=== PATIENT | female | born 1955 | race Hispanic/Latino ===

== ENCOUNTER 2019-07-15 05:58 | Observation (INO) | payer MEDICARE, BC ==
[2019-07-09 13:20] VITALS: BP 169/85
[2019-07-09 13:30] LABS: BASOPHILS % (AUTO) 0.7 % (0.0-5.0); EOSINOPHILS % (AUTO) 1.1 % (0.0-8.0); HEMATOCRIT 44.2 % (36-48); MEAN CORPUSCULAR HEMOGLOBIN 27.9 pg (27.0-33.0); MEAN CORPUSCULAR HGB CONC 31.2 g/dL (32.0-36.0); MEAN CORPUSCULAR VOLUME 89.3 fL (79-99); MONOCYTES % (AUTO) 4.2 % (3.0-13.0); NEUTROPHILS % (AUTO) 73.1 % (40.0-77.0); PLATELET COUNT (AUTO) 307 K/uL (130-400); RED BLOOD CELL COUNT(AUTO) 4.95 MIL/uL (4.00-5.50); RED CELL DISTRIBUTION WIDTH 14.6 % (11.0-15.5); WHITE BLOOD COUNT (AUTO) 9.5 K/uL (4.8-10.8)
[2019-07-09 13:42] LABS: POTASSIUM 4.4 mmol/L (3.5-5.1)
[2019-07-15] VITALS (25 sets, daily range): BP systolic 119–156; BP diastolic 62–76
[~2019-07-15] VITALS: Ht 165.1 cm; Wt 100.0 kg
[~2019-07-15 05:58] MED LIST: ACET1TAB12 PO; KETO10 PO; PREG75 PO
[2019-07-15] MEDS: CEFAZOLIN SODIUM 1 GM VIAL IVP SCH ×5 (06:00→21:25)
[2019-07-15] MEDS ORDERED: LACTATED RINGERS 1000ML 1,000 ML IV ONE (06:10)
[2019-07-15] MEDS ORDERED: CEFAZOLIN SODIUM 1 GM VIAL ONE (06:49)
[2019-07-15] MEDS ORDERED: BUPIVACAINE/EPI/PF 0.25% 30ML VIAL IJ ONE (06:49)
[2019-07-15] MEDS ORDERED: THROMBIN-JMI 20000 UNIT KIT TP ONE (06:49)
[2019-07-15] MEDS ORDERED: DURAMORPH PF1 MG/ML 10ML AMP IV ONE (06:49)
[2019-07-15] MEDS ORDERED: LIDOCAINE PF 2% 5ML ABBOJECT ONE (07:03)
[2019-07-15] MEDS ORDERED: DEXAMETHASONE SOD PHOSPHATE 10MG/ML 1ML VIAL ONE ×2 (07:03→07:41)
[2019-07-15] MEDS ORDERED: PROPOFOL 10 MG/ML 20ML VIAL IV ONE (07:03)
[2019-07-15] MEDS ORDERED: FENTANYL CITRATE PF 50 MCG/1 ML 2ML VIAL ONE ×2 (07:04→08:03)
[2019-07-15] MEDS ORDERED: NEOSTIGMINE 5MG/5ML SYR IV ONE (07:04)
[2019-07-15] MEDS ORDERED: GLYCOPYRROLATE 1 MG/5 ML SYRINGE ONE (07:04)
[2019-07-15] MEDS ORDERED: ONDANSETRON HCL 4 MG/2 ML VIAL ONE ×2 (07:04→14:51)
[2019-07-15] MEDS ORDERED: ROCURONIUM 10MG/1ML SYR 10 MG/ML ML ONE (07:04)
[2019-07-15] MEDS ORDERED: MIDAZOLAM HCL 1 MG/ML 2ML VIAL ONE (07:04)
[2019-07-15] MEDS ORDERED: EPHEDRINE SULFATE 50 MG/ML AMPULE ONE (08:24)
[2019-07-15] MEDS ORDERED: MORPHINE SULFATE 2 MG/ML 1ML SYG IVP PRN (10:00)
[2019-07-15] MEDS ORDERED: KETOROLAC TROMETHAMINE 10 MG TABLET PO PRN (10:00)
[2019-07-15] MEDS ORDERED: SODIUM CHLORIDE 0.9% 10 ML VIAL IVP PRN (10:00)
[2019-07-15] MEDS ORDERED: ACETAMINOPHEN-CODEINE 300/30MG TAB PO SCH (10:00)
[2019-07-15] MEDS: DEXAMETHASONE SOD PHOSPHATE 4 MG/ML 1ML VIAL IVP SCH ×3 (10:00→21:23)
[2019-07-15] MEDS ORDERED: PREGABALIN 75 MG CAPSULE PO PRN (10:00)
[2019-07-15] MEDS ORDERED: PROMETHAZINE HCL 25 MG/ML 1ML AMPULE IM PRN (10:00)
[2019-07-15] MEDS ORDERED: HYDROCODONE/ACETAMINOPHEN 5/325 MG TAB PO PRN (10:00)
[2019-07-15] MEDS: LACTATED RINGERS 1000ML 1,000 ML IV SCH ×2 (11:45→21:23)
--- NOTE | 2019-07-15 14:11 | NUR ---
1243 patient signed STORY Letter I faxed STORY Letter to [id number] and placed in chart under consent tab.
[2019-07-15] MEDS ORDERED: ONDANSETRON HCL 4 MG/2 ML VIAL IVP PRN (17:00)
[2019-07-16] VITALS: BP 120/69
[2019-07-16 04:00] VITALS: BP 105/59
[2019-07-16] MEDS: DEXAMETHASONE SOD PHOSPHATE 4 MG/ML 1ML VIAL IVP SCH ×2 (05:10→09:43)
[2019-07-16] MEDS: LACTATED RINGERS 1000ML 1,000 ML IV SCH (05:12)
[2019-07-16] MEDS: CEFAZOLIN SODIUM 1 GM VIAL IVP SCH (05:12)
--- NOTE | 2019-07-16 06:10 | NUR ---
F/C F/C DISCONTINUED ORDERED DTV, INSTRUCT PATIENT TO CALL NURSE WHEN URGE TO VOID, PATIENT VERBALIZES UNDERSTANDING VIA TEACH BACK, CALL [facility] AT REACH
[2019-07-16 07:30] VITALS: BP 124/67
--- NOTE | 2019-07-16 10:59 | NUR ---
CM NOTE SCHEDULED PORCEDURE, ONE DAY STAY , REVIEWED CHART INC WICHO/MD VAZ, NO TRIGGERS OR CONCERNS, DETAILED CM ASSESSMENT DEFERRED Addendum: 07/16/19 at 1101 by VALERIA URIBE RN CM Amended: Links added.
== END 2019-07-16 12:00 | disposition home or self-care (01) ==
LOC: DAHIP 05:58 → 4AH 11:13 → EDSTATUS 14:41
PROVIDERS: ADMIT Neurological Surgery; ATTEND Neurological Surgery
DX: M51.26 Other intervertebral disc displacement, lumbar region (principal); M47.9 Spondylosis, unspecified
CPT/HCPCS: 36415; 63030; 71045; 72020; 80051; 85025; 93005; 96372; 96374; 96375; 96376 ×2; A4213; A4215; A4221; A4222; A4223; A4344; A4510; A4600; A4649 ×4; A4663; A6260; G0378 ×21; J0690 ×3; J1100 ×5; J2001; J2250; J2274; J2405 ×2; J2550; J2704; J2710; J3010 ×2; J3490 ×3; J7120 ×3